=== PATIENT | male | born 1965 | race Caucasian/White ===

== ENCOUNTER → 2018-06-04 | Outpatient (CLI) | payer OTHER ==
[~2018-06-04] MED LIST: ALLO-119 PO; ALLO100T70 PO; ALLOPURINOL; ASPI-757 PO; ASPI81TA94 PO; HCTZ; INDO75CA PO; MELO-207 PO; METO50TA19 PO; METOPROLOL; MULT1TAB54 PO; OXYC-373 PO; OXYC-823 PO; ROSU10TA PO; ROSU20TA24 PO
--- NOTE | 2018-06-04 15:25 | RT STRESS TEST REPORT ---
FACILITY: [facility] PATIENT NAME: CHAU DENTON : [id number] MR: [id number] V: [id number] EXAM DATE: ORDERING PHYSICIAN: YANICK MARS TECHNOLOGIST: Casandra Acquisition Time: 2018-06-04 14:42:07 Total Exercise Time: 00:08:00 Test Indications: Syncope Medications: SEE NUCLEAR MED SHEET Protocol: JOMAR 2 Max HR: 155 BPM 91% of Pred: 169 BPM Max BP: 156/073 mmHG Max Work Load: 10.1 METS Patient exercised eight (8) minutes under Jomar 2 Protocol. He did not experinece any chest pain or s ignificant dyspnea. No significant EKG changes were noted. One apparent ventricular couplet was recorded, but this was probably artifact as it was not appreciated in the other leads on 12 lead EKG. Recovery was uneventful. IMPRESSION: Low probability of ischemia. Await Myoview images Confirmed by CARLOS KAHN ([id number]) on 06/04/2018 3:25:02 PM Referred By: Overread By: CARLOS KAHN
--- NOTE | 2018-06-04 16:29 | RADIOLOGY IMAGING REPORT ---
FACILITY: [facility] [place] PATIENT NAME: Rajesh Foote : 1965 MR: [id number] V: [id number] EXAM DATE: ORDERING PHYSICIAN: YANICK MARS TECHNOLOGIST: Location: [facility] Patient: Rajesh Foote : 1965 Visit/Account:[id number] Date of Sevice: 06/04/2018 EXAMINATION: Single Isotope SPECT Imaging with Exercise and Gated SPECT Imaging DATE OF EXAMINATION: 06/04/2018. DATE OF INTERPRETATION: 06/04/2018. REQUESTING PHYSICIAN: YANICK MARS. INDICATION: The patient is a 53-year-old male evaluated for chest pain. PROCEDURE: After informed consent the patient received an intravenous injection of 12.3 mCi of Tc-9 9m sestamibi followed at the appropriate time interval by rest imaging. The patient then exercised a ccording to the standard Jomar protocol for 8 minutes achieving 10 METS. Resting heart rate was 71 b pm with a peak heart rate of 155 bpm which is 93 % of maximal predicted heart rate for age. Blood p ressure at rest was 144 / 97; blood pressure during exercise was 156 / 73. There was no reported yeyo st pain during exercise. Exercise was discontinued because of fatigue. Baseline EKG demonstrates si nus rhythm. There were no EKG changes of ischemia at peak exercise. Approximately one minute and 30 seconds prior to the termination of exercise, the patient received an intravenous injection of 28.5 mCi of Tc-99m sestamibi followed by stress imaging. RAW DATA: Examination of the summed raw data revealed a adequate quality study. There is probable di aphragmatic attenuation and anterior chest/breast attenuation. MYOCARDIAL PERFUSION: The tomographic images demonstrate a small sized, mild intensity defect in the basal to mid inferior wall on rest and stress images. This defect normalizes on prone imaging study with attenuation artifact from the diaphragm. There is also very mild defect in the anterior wall modesta jacinto apical anterior wall. This is fixed and also normalizes on prone imaging. This is likely due t o anterior/breast attenuation. No transient ischemic dilation. GATED IMAGES: The gated images demonstrate LVEF 57%. Normal regional wall motion. IMPRESSION: 1. Normal treadmill stress test without ischemic EKG changes. Average exercise capacity exercising f or 8 minutes. 2. Probably normal myocardial perfusion scan with attenuation artifact. No ischemia present. 3. Normal LV systolic function; LVEF 57%. 4. Based on the results of this exam, the patient appears to be at low risk for future cardiovascular events. Report Dictated By: David Ac at 06/04/2018 4:18 PM Report E-Signed By: David Ac at 06/04/2018 4:25 PM WSN:[id number]
== END ==
LOC: NUC 00:38
PROVIDERS: ATTEND Family Medicine
DX: R07.2 Precordial pain (principal)
CPT/HCPCS: 78452; 93017; A9500